=== PATIENT | female | born 1965 ===

== ENCOUNTER 2023-05-03 07:00 | Inpatient (IN) | payer OTHER ==
[~2023-05-03] VITALS: Ht 170.2 cm; Wt 89.8 kg
[2023-05-03 10:55] LABS: HEMOGLOBIN 11.6 g/dL (12.0-15.00); MEAN CELL VOLUME 77.7 fL (80.00-100.00); MEAN CORPUSCULAR HEMOGLOBIN 24.9 pg (27.00-32.0); MEAN CORPUSCULAR HGB CONC 32.1 g/dl (32.0-36.0); PLATELET COUNT 398 K/uL (150-450); RED BLOOD COUNT 4.64 M/uL (4.00-6.00); RED CELL DISTRIBUTION WIDTH 18.3 % (11.5-14.5)
[2023-05-03 10:59] LABS: PH,URINE 5.5 (5.0-8.0); URINE APPEARANCE Clear; URINE BILIRRUBIN Negative (NEGATIVE); URINE BLOOD Negative; URINE COLOR Yellow; URINE LEUKOCYTE Negative; URINE NITRATE Negative; URINE PROTEIN Negative (NEGATIVE); URINE UROBILINOGEN 0.2 E.U./dl
[2023-05-03 11:07] LABS: URINE BACTERIA 16.3 uL (0.0-1933); URINE EPITHELIAL CELLS 7.8 uL (0.0-38.8)
[2023-05-03 11:44] LABS: ALBUMIN 3.9 gm/dL (3.4-5.0); BILIRUBIN TOTAL 0.22 mg/dL (0.3-1.2); CALCIUM 9.7 mg/dL (8.5-10.1); CREATININE SERUM 0.57 mg/dL (0.55-1.02); GFR 108.56; POTASSIUM 4.39 mEq/L (3.5-5.1); TOTAL PROTEIN 7.9 gm/dL (6.4-8.2)
[2023-05-03 11:45] LABS: URINE GLUCOSE >=1000 MG/DL (NEGATIVE); URINE RBC 1.4 uL (0.0-20.8)
[2023-05-03 11:51] LABS: INR < 0.93; PARTIAL THROMBOPLASTIN TIME 26.8 SECONDS (22.0-34.0); PROTHROMBIN TIME 9.4 SECONDS (9.0-11.5)
[2023-05-03] MEDS ORDERED: RYVENT6 MG PO (12:55)
[2023-05-03] MEDS ORDERED: PEPCID40 MG PO (12:55)
[2023-05-03] MEDS ORDERED: PRILOSEC OTC20 MG PO (12:55)
[2023-05-03] MEDS ORDERED: SYNJARDY 12.5-1 EACH (13:03)
[2023-05-03] MEDS ORDERED: RYBELSUS7 MG (13:04)
[2023-05-10] MEDS ORDERED: ST. JOSEPH ASPI81 M2 (09:54)
[2023-05-10] MEDS ORDERED: ROSUVASTATIN CA40 MG (09:54)
[2023-05-10] MEDS ORDERED: FLONASE16 GM (09:54)
[2023-05-10] MEDS ORDERED: GABAPENTIN300 M2 (09:54)
[2023-05-10] MEDS ORDERED: OMEPRAZOLE40 MG (09:54)
[2023-05-11 06:27] LABS: HEMATOCRIT 30.1 % (36.0-45.00); HEMOGLOBIN 9.7 g/dL (12.0-15.00); MEAN CELL VOLUME 75.7 fL (80.00-100.00); MEAN CORPUSCULAR HEMOGLOBIN 24.4 pg (27.00-32.0); MEAN CORPUSCULAR HGB CONC 32.2 g/dl (32.0-36.0); PLATELET COUNT 325 K/uL (150-450); RED BLOOD COUNT 3.98 M/uL (4.00-6.00); RED CELL DISTRIBUTION WIDTH 18.2 % (11.5-14.5)
[2023-05-11] MEDS ORDERED: DUI500 PO (07:37)
[2023-05-11] MEDS ORDERED: PERCOCET 5-3251 EACH PO (07:37)
[2023-05-11] MEDS ORDERED: ELIQUIS2.5 MG PO (07:37)
[2023-05-12 07:05] LABS: HEMATOCRIT 33.7 % (36.0-45.00); HEMOGLOBIN 10.7 g/dL (12.0-15.00); MEAN CELL VOLUME 76.5 fL (80.00-100.00); MEAN CORPUSCULAR HEMOGLOBIN 24.3 pg (27.00-32.0); MEAN CORPUSCULAR HGB CONC 31.8 g/dl (32.0-36.0); PLATELET COUNT 380 K/uL (150-450); RED CELL DISTRIBUTION WIDTH 18.5 % (11.5-14.5)
== END 2023-05-12 17:24 | DRG 470 ==
LOC: O/R 05-10 06:00 → SURG 05-10 07:00 → SURH 05-10 14:16 → SURG 05-10 18:00 → SURH 05-11 10:51
PROVIDERS: ADMIT Orthopaedic Surgery; ATTEND Orthopaedic Surgery
PROC: 0SRC0J9 Replacement of Right Knee Joint with Synthetic Substitute, Cemented, Open Approach (ICD-10-PCS; principal; 2023-05-10 18:00)
DX: M17.11 Unilateral primary osteoarthritis, right knee (principal); M22.11 Recurrent subluxation of patella, right knee; D64.89 Other specified anemias; M79.7 Fibromyalgia; E11.9 Type 2 diabetes mellitus without complications; Z79.84 Long term (current) use of oral hypoglycemic drugs